=== PATIENT | female | born 1955 | race Caucasian/White ===

== ENCOUNTER 2017-11-25 13:39 | Emergency (ER) | payer BC ==
[2017-11-25 13:50] VITALS: BP 134/77
[2017-11-25] MEDS ORDERED: Silver Sulfadiazine 1%* 20 GM TOPICAL ONE (14:55)
--- NOTE | 2017-11-25 14:55 | UC ---
Skin Complaint HPI - HPI Summary HPI Summary: 62 y/o female presents to the urgent care c/o a burn in her chin s/p drinking a hot tea since Sunday. Pt reports she was drinking a hot tea while driving. Pt states pain is mild 2/10 at touch, but she wants to make sure it is not getting infected. She has applied OTC cream for mares. Pt denies drainage, fever, SOB, chest pain, abdominal pain, N/V/D. Pt is UTD w/ tetanus vaccine. - History of Current Complaint Chief Complaint: UCBurn Time Seen by Provider: 11/25/17 14:42 Stated Complaint: BURN TO CHIN Hx Obtained From: Patient ?: No Onset/Duration: Sudden Onset, Lasting Days - 3 days, Still Present Skin Exposure Onset/Duration: Days Ago - 3 days Timing: Constant Onset Severity: Mild Current Severity: Mild Pain Intensity: 2 Pain Scale Used: 0-10 Numeric Location: Discrete - left side of chin Character: Exposure to Heat Continuous, Redness, Painful Aggravating Factor(s): Touch Alleviating Factor(s): OTC Meds Associated Signs & Symptoms: Positive: Rash, Tenderness. Negative: Fever, Chills, Drainage Related History: Other: - burn w/ hot tea - Allergy/Home Medications Allergies/Adverse Reactions: Allergies Allergy/AdvReac Type Severity Reaction Status Date / Time ibuprofen Allergy unk' Verified 11/25/17 13:51 latex Allergy Rash Verified 11/25/17 13:51 Penicillins Allergy Rash Verified 11/25/17 13:50 Home Medications: Home Medications Azelaic Acid [Finacea] 50 gm 11/25/17 [History] Conjugated Estrogens VAG CM* [Premarin VAG CREAM*] 11/25/17 [History] Dapsone [Aczone] 11/25/17 [History] Ergocalciferol CAP* [Drisdol CAP*] 50,000 unit 11/25/17 [History] Review of Systems Constitutional: Negative Skin: Other - burn of chin w/ hot tea Eyes: Negative ENT: Negative Respiratory: Negative Cardiovascular: Negative Gastrointestinal: Negative Genitourinary: Negative Motor: Negative Neurovascular: Negative Musculoskeletal: Negative Neurological: Negative Psychological: Negative Is Patient Immunocompromised?: No All Other Systems Reviewed And Are Negative: Yes PMH/Surg Hx/FS Hx/Imm Hx Previously Healthy: Yes Endocrine History: Hypothyroidism - Surgical History Surgical History: Yes Surgery Procedure, Year, and Place: uterine aBlation, neck pins ANTERIOR DISCECTOMY FUSION X2 - Family History Known Family History: Positive: Hypertension - Social History Occupation: Employed Full-time Lives: With Family Alcohol Use: Rare Substance Use Type: None Smoking Status (MU): Never Smoked Tobacco - Immunization History Hx Tetanus, Diphtheria Vaccination: Yes Physical Exam - Summary Physical Exam Summary: Vital Signs Reviewed: Yes General: well developed, well nourished female sitting in the examining table w/ o any apparent distress. Eyes: Positive: Conjunctiva Clear - PERRLA, EOMI ENT: Positive: Normal ENT inspection, Hearing grossly normal, Pharynx normal, TMs normal Neck: Positive: Supple, Nontender, No Lymphadenopathy Respiratory: Positive: Chest nontender, Lungs clear, Normal breath sounds Cardiovascular: Positive: RRR, No Murmur, Pulses Normal Abdomen Description: Positive: Nontender, No Organomegaly, Soft. Negative: CVA Tenderness (R), CVA Tenderness (L) Bowel Sounds: Positive: Present Musculoskeletal: Positive: Strength Intact, ROM Intact, No Edema Neurological Exam: Normal Psychological Exam: Normal Skin: Positive: chin w/ a small superficial erythematous burn w/o blisters about 0.3cmx0.2cm in size. tender to palpation. mild swelling observed. skin blanches w/ pressure, Triage Information Reviewed: Yes Vital Signs: Initial Vital Signs Temp 98 F 11/25/17 13:46 Pulse 70 11/25/17 13:46 Resp 16 11/25/17 13:46 BP 134/77 11/25/17 13:46 Pulse Ox 100 11/25/17 13:46 Course/Dx - Course Course Of Treatment: 62 y/o female presents to the urgent care c/o a burn in her chin s/p drinking a hot tea since Sunday. Pt reports she was drinking a hot tea while driving. Pt states pain is mild 2/10 at touch, but she wants to make sure it is not getting infected. She has applied OTC cream for mares. Pt denies drainage, fever, SOB, chest pain, abdominal pain, N/V/D. Pt is UTD w/ tetanus vaccine.Hx obtained. Pt w/ left side of chin w/ a small superficial erythematous burn w/o blisters about 0.3cmx0.2cm in size. tender to palpation. mild swelling observed. skin blanches w/ pressure on examination. wound cleaned w/ sterile water and Silver Silvadene cream applied over and wound covered w/ sterile gauze. Silver silvadene dispense home and Pt educated in how to applied. D/C instructions explained. Pt understood and agreed w/ plan of care. - Differential Diagnoses - Skin Complaint Differential Diagnoses: Airway Obstruction, Cellulitis, Contact Dermatitis, Local Allergic Reaction, MRSA, Other - burn - Diagnoses Provider Diagnoses: 1- Superficial burn of the chin Discharge - Sign-Out/Discharge Documenting (check all that apply): Discharge/Admit/Transfer - D/C home - Discharge Plan Condition: Stable Disposition: HOME Prescriptions: Acetaminophen TAB* [Tylenol TAB*] 650 mg PO Q6H PRN #30 tab PRN Reason: Pain Patient Education Materials: Superficial Burn (ED) Referrals: Misael Gates MD [Primary Care Provider] - Additional Instructions: 1- Please apply Silver Sulfadiazine cream around the superficial burn of the left cheek as directed. Avoid sun exposure. Keep wound dry and clean 2- Take Tylenol PO q6-8hrs prn as directed to decrease swelling and pain 3- If develop redness and signs of infection please return to the urgetn care or f/u w/ your PCP for furthr management. - Billing Disposition and Condition Condition: STABLE Disposition: Home
== END 2017-11-25 15:15 | disposition home or self-care (01) ==
LOC: UCEAST 13:39
DX: T20.13XA Burn of first degree of chin, initial encounter (principal); X10.0XXA Contact with hot drinks, initial encounter; Y93.89 Activity, other specified; Y92.810 Car as the place of occurrence of the external cause; E03.9 Hypothyroidism, unspecified; Z88.0 Allergy status to penicillin; Z88.6 Allergy status to analgesic agent; Z91.040 Latex allergy status; Z82.49 Family history of ischemic heart disease and other diseases of the circulatory system
CPT/HCPCS: 99212; A9270-GY; G0463